=== PATIENT | female | born 1995 | race Caucasian/White ===

== ENCOUNTER 2020-04-19 04:59 | Emergency (ER) | payer OTHER, SELFPAY ==
[2020-04-19 05:05] VITALS: BP 134/85; PULSE 113; RESP 20; TEMP 36.2; O2SAT 100
--- NOTE | 2020-04-19 05:25 | ED.GENADULT ---
HPI - General Adult General Chief complaint: Urogenital-Female Stated complaint: sti exposure Time Seen by Provider: 04/19/20 05:02 Source: RN notes reviewed History of Present Illness HPI narrative: Patient presents to emergency department from home for possible STD exposure. Patient states that her significant other had sexual intercourse with a third democrat approximately 1 week ago. States that they have been sexually active since that time and she has had a white discharge for the past 4 days. Concerns of possible STD secondary to this. The patient denies any fevers or chills abdominal pain or any other symptoms at this time Related Data Allergies Allergy/AdvReac Type Severity Reaction Status Date / Time No Known Allergies Allergy Unverified 01/02/16 07:18 Review of Systems Review of Systems: Narrative: Gen.: Denies fevers or chills ENT: Denies congestion Respiratory: Denies shortness of breath or cough CV: Denies chest pain GI: Denies abdominal pain nausea, emesis see HPI Musculoskeletal: Denies back pain or muscle pain Neuro: Denies headache Skin: Denies rash Except as documented, all other systems reviewed and negative [facility] Past Medical History Medical History (Updated 04/19/20 @ 06:08 by Rom Lockett DO) Patient denies significant medical history Social History Social History (Updated 04/19/20 @ 05:26 by Rom Lockett DO) Smoking status: Current every day smoker Exam Narrative: Exam Narrative: APPEARANCE: No acute distress, nontoxic, resting in bed EYES: EOMI HEENT: Normocephalic, atraumatic, OMM RESPIRATORY: No respiratory distress Clear to auscultation bilaterally with no rhonchi wheezing or rales. CARDIOVASCULAR: Regular rate and rhythm without murmurs rubs or gallops. ABDOMINAL: Soft, nontender, nondistended, no rebound or guarding : Normal external exam, small amount of white discharge in vaginal canal, cervix closed, no cervical motion tenderness MUSCULOSKELETAl: Moves all extremities. NEURO: Awake and alert. Following commands, speech normal, no focal deficits SKIN:: Warm, dry. No rashes lesions or abrasions PSYCHIATRIC: Normal affect/mood, Course Course Emergency Course: Discussed with patient results of workup and diagnosis. Discussed need for follow-up with primary care, proper use of medication, and reasons to return to the emergency department. Patient understands and agrees to current treatment plan Vital Signs Vital signs: Vital Signs Temperature 97.1 F L 04/19/20 05:05 Pulse Rate 113 H 04/19/20 05:05 Respiratory Rate 20 04/19/20 05:05 Blood Pressure 134/85 04/19/20 05:05 Pulse Oximetry 100 04/19/20 05:05 Temperature 97.1 F L 04/19/20 05:05 Pulse Rate 113 H 04/19/20 05:05 Respiratory Rate 20 04/19/20 05:05 Blood Pressure 134/85 04/19/20 05:05 Pulse Oximetry 100 04/19/20 05:05 Medical Decision Making Vital Signs Vital Signs: Vital Signs Temperature 97.1 F L 04/19/20 05:05 Pulse Rate 113 H 04/19/20 05:05 Respiratory Rate 20 04/19/20 05:05 Blood Pressure 134/85 04/19/20 05:05 Pulse Oximetry 100 04/19/20 05:05 Temperature 97.1 F L 04/19/20 05:05 Pulse Rate 113 H 04/19/20 05:05 Respiratory Rate 04/19/20 05:05 Blood Pressure 134/85 04/19/20 05:05 Pulse Oximetry 100 04/19/20 05:05 Lab Data Labs: Lab Results 04/19/20 04/19/20 04/19/20 Range/Units 05:19 05:27 05:27 Urine Color Yellow (Yellow) Urine Appearance Clear (Clear) Urine pH 5.0 (5.0-9.0) Ur Specific Merkel 1.026 (1.001-1.035) Urine Protein 1+ H (Negative) mg/dL Urine Glucose (UA) Negative (Negative) mg/dL Urine Ketones Negative (Negative) mg/dL Ur Blood (Man) Negative (Negative) Urine Nitrate Negative (Negative) Urine Bilirubin Negative (Negative) Urine Urobilinogen 2.0 H (<2.0) mg/dL Leukocyte Esterase Rfl Negative (Negative) ARASH/UL Urine RBC 0-2 (
[2020-04-19 05:31] LABS: Add Urine Microscopic? YES; Appearance Urine Clear (Clear); Bacteria Urine Trace /hpf; Bilirubin Urine Negative (Negative); Blood Urine Negative (Negative); Color Urine Yellow (Yellow); Glucose Urine UA Negative (Negative); Ketones Urine Negative (Negative); Leukocyte Esterase Ur Negative LEU/UL (Negative); Mucus Urine Heavy /lpf; Nitrate Urine Negative (Negative); Protein Urine 1+ mg/dL (Negative); RBC Urine 0-2 /hpf (0-2); Specific Grav Ur 1.026 (1.001-1.035); Squamous Epithelial Cell Urine Few /hpf (Few); WBC Urine 0-3 /hpf
[2020-04-19] MEDS: AZITHROMYCIN 250 MG TABLET 1000 MG PO (06:08)
[2020-04-19] MEDS: cefTRIAXone 250 MG VIAL IM (06:08)
== END 2020-04-19 06:18 | disposition home or self-care (01) ==
PROVIDERS: Emergency Provider Emergency Medicine; PCP Nurse Practitioner Family
DX: Z20.2 Contact with and (suspected) exposure to infections with a predominantly sexual mode of transmission (principal); F17.200 Nicotine dependence, unspecified, uncomplicated
CPT/HCPCS: 81001; 81025; 87070; 87491; 87591; 87808; 96372; 99284; A9270; J0696

== ENCOUNTER 2020-08-19 02:04 | Emergency (ER) | payer OTHER, SELFPAY ==
--- NOTE | ~2020-08-19 | CT_ITS ---
EXAMINATION: CT abdomen pelvis w con DATE: 08/19/2020 03:45 INDICATION: Sharp stabbing right lower quadrant abdominal pain. TECHNIQUE: Computed tomography (CT) of the abdomen and pelvis was performed with 100 mL Omnipaque-350 intravenous contrast. Automated exposure control and iterative reconstruction technique were employe d. The dose-length product was 228.19 mGy-cm. COMPARISON: None FINDINGS: Lung bases are clear. Heart size is normal. No pericardial or pleural effusion. Liver, decompressed g allbladder, spleen, pancreas and bilateral adrenal glands are normal. A few small regions of cortical scarring at both kidneys consistent with likely sequela of prior infection. No bowel obstruction. Th e appendix is not visualized. No pericecal inflammatory change to suggest acute appendicitis. 2 cm ri ght ovarian cyst. Bladder, anteverted uterus and left adnexa are unremarkable. Trace amount of likely physiologic free fluid in the pelvis. No free intraperitoneal gas. There is asymmetric mild joint sp samuel during the left hip relative to the right and small marginal osteophytes about the left femoral h ead consistent mild osteoarthritis which given patient age may be secondary to prior trauma or infect ion. Nonaggressive appearing 2.2 cm lytic lesion with well-defined thin sclerotic margins at the late ral aspect of the left humeral head likely either degenerative subchondral cyst or cystic change rela cooper to femoral acetabular impingement with similar significantly smaller cystic change at the right a nterosuperior femoral head neck junction. IMPRESSION: 1. Nonvisualized appendix with no pericecal inflammatory stranding to suggest acute appendicitis. 2. 2 cm right ovarian cyst. No other evident acute intra-abdominal/pelvic process. Reviewed, dictated and finalized at location A. [facility] TECHNICIAN IMPRESSION: 1. Nonvisualized appendix with no pericecal inflammatory stranding to suggest a cute appendicitis. 2. 2 cm right ovarian cyst. No other evident acute intra-abdominal/pelvic proce ss.
[2020-08-19 02:10] VITALS: BP 114/78; PULSE 90; RESP 20; TEMP 36.2; O2SAT 98
[2020-08-19 02:45] VITALS: BP 121/85; PULSE 88; RESP 19; O2SAT 99
--- NOTE | 2020-08-19 02:57 | ED.ABDPAIN ---
HPI - Abdominal Pain General Chief Complaint: Abdominal Pain Stated Complaint: Abd pain Time Seen by Provider: 08/19/20 02:53 Source: patient Mode of arrival: ambulatory Limitations: no limitations History of Present Illness HPI narrative: A 24-year-old female comes into the emergency department tonight with complaints of abdominal pain. Patient states that it was sharp, stabbing in nature and actually woke her up out of sleep. Patient states that it woke her up around 1:30 in the morning and has been unrelenting since then. She notes that she has never had a pain like this before. Patient denies any radiation of the pain. She notes that she has been having bowel movements. She denies any nausea or vomiting. Related Data Allergies Allergy/AdvReac Type Severity Reaction Status Date / Time No Known Allergies Allergy Unverified 01/02/16 07:18 Review of Systems Review of Systems: Narrative: CONSTITUTIONAL: Denies fever, chills, or sweats. EYES: Denies visual changes, redness, or discharge. ENT: Denies rhinorrhea, congestion, sore throat, or otalgia. CARDIOVASCULAR: Denies chest pain, palpitations, or edema. RESPIRATORY: Denies cough or dyspnea. GASTROINTESTINAL: Denies nausea, vomiting, or diarrhea. Endorses abdominal pain GENITOURINARY: Denies dysuria or hematuria. SKIN: Denies rash or itching. MUSCULOSKELETAL: Denies back pain, joint pain, or myalgia. NEUROLOGIC: Denies headache, numbness, dizziness, or weakness. PSYCHIATRIC: Denies anxiety or depression. PMFSH Past Medical History Medical History Patient denies significant medical history Social History Social History Smoking status: Current every day smoker Exam Narrative: Exam Narrative: GENERAL: Well-appearing, well-nourished, and in no acute distress. HEAD: Normocephalic, atraumatic. EYES: PERRLA and EOMI. ENT: Nares clear, no rhinorrhea or epistaxis. Mucous membranes moist. NECK: Supple. No adenopathy or masses. No carotid bruits or JVD CHEST: Clear to auscultation. No respiratory distress. No wheezes rales or rhonchi HEART: Regular rate and rhythm. No murmur heard. Normal peripheral pulses. ABDOMEN: Soft,nondistended, normal active bowel sounds. Tenderness to palpation of the right lower quadrant, positive McBurney's point tenderness. Positive Rovsing's and rebound. EXTREMITIES: Normal range of motion. No edema. SKIN: Warm, dry, no rash. NEURO: No focal deficits. Alert and oriented x3. PSYCH: Normal mood and affect. Course Reevaluation(s) Reevaluation #1: Patient resting comfortably at this time. Informed patient of the results of her work-up. Patient states she is feeling better, after some education and explanation of the plan she will be discharged home to follow-up with primary care physician. Time: 04:08 Vital Signs Vital signs: Vital Signs Temperature 36.2 C L 08/19/20 02:10 Pulse Rate 90 08/19/20 02:10 Respiratory Rate 20 08/19/20 02:10 Blood Pressure 114/78 08/19/20 02:10 Pulse Oximetry 98 08/19/20 02:10 Temperature 36.2 C L 08/19/20 02:10 Pulse Rate 90 08/19/20 02:10 Respiratory Rate 20 08/19/20 02:10 Blood Pressure 114/78 08/19/20 02:10 Pulse Oximetry 98 08/19/20 02:10 MDM - Abdominal Pain MDM Narrative Medical decision making narrative: In brief this 24-year-old female came into the emergency department with complaints of right lower quadrant abdominal pain. With positive rebound and Rovsing sign it was most suspicious of a possible appendicitis. Reassuringly the patient's white blood cell count was found to be within normal limits. She did have a CT scan performed that did show constipation and ovarian cyst explaining her right lower quadrant pain. Patient was educated on this and explained what to do for this. She be discharged home to follow-up with a primary care physician. Differenti
[2020-08-19 03:01] VITALS: BP 123/80; PULSE 94; RESP 22; O2SAT 99
[2020-08-19 03:18] LABS: Basophils Absolute Auto 0.1 K/mm3 (0.0-0.1); Basophils Percent Auto 0.7 % (0.2-1.2); Eosinophils Absolute Auto 0.2 K/mm3 (0-0.3); Eosinophils Percent Auto 2.7 % (0-4.4); Hematocrit 38.5 % (37.0-47.0); Hemoglobin 12.6 g/dL (12.0-15.0); Immature Granulocyte Absolute 0.03 K/mm3 (0.00-0.031); Immature Granulocyte Percent A 0.3 % (0-0.5); Lymphocytes Absolute Auto 4.18 K/mm3 (0.9-3.2); Lymphocytes Percent Auto 46.5 % (18.3-44.2); Mean Corpuscular HGB Conc 32.7 g/dl (32-36); Mean Corpuscular Hemoglobin 29.6 pg (26-34); Mean Corpuscular Volume 90.6 fl (80-100); Mean Platelet Volume 8.9 fl (7.4-10.4); Monocytes Absolute Auto 0.7 K/mm3 (0.1-0.6); Monocytes Percent Auto 7.3 % (2.6-8.5); Neutrophils Absolute Auto 3.8 K/mm3 (1.3-6.7); Neutrophils Percent Auto 42.5 % (45.5-73.1); Platelet Count Result 382 k/mm3 (150-375); Red Blood Count 4.25 M/mm3 (4.2-5.4); Red Cell Distribution Width 13.2 % (11.5-14.5)
[2020-08-19 03:26] LABS: Add Urine Microscopic? YES; Appearance Urine Cloudy (Clear); Bacteria Urine 4+ /hpf; Bilirubin Urine Negative (Negative); Blood Urine 1+ (Negative); Color Urine Yellow (Yellow); Glucose Urine UA Negative (Negative); Ketones Urine Negative (Negative); Leukocyte Esterase Ur Trace LEU/UL (Negative); Mucus Urine Heavy /lpf; Nitrate Urine Positive (Negative); Protein Urine Negative (Negative); RBC Urine 0-2 /hpf (0-2); Squamous Epithelial Cell Urine Few /hpf (Few); Urobilinogen Urine Negative mg/dL (<2.0)
[2020-08-19 03:31] LABS: Alanine Aminotransferase 13 U/L (4-35); Alkaline Phosphatase 59 U/L (38-126); Anion Gap 6 mmol/L (8-16); Aspartate Amino Transferase 24 U/L (14-36); Bilirubin,Total 0.2 mg/dL (0.2-1.3); Blood Urea Nitrogen 18 mg/dL (7-17); Calcium 9.1 mg/dL (8.4-10.2); Carbon Dioxide 29 mmol/L (22-30); Chloride 106 mmol/L (98-107); Estimated CRCL calculation 83 ml/min; Estimated Glomerular Filt Rate > 60; Glucose 94 mg/dL (65-105); Lipase 36 U/L (23-300); Sodium 141 mmol/L (137-145)
[2020-08-19 03:47] LABS: Beta HCG Quantitative < 2.39 mIU/ML
[2020-08-19] MEDS: LACTATED RINGERS 1,000 ML 999 ML IV CONT (03:53)
[2020-08-19] MEDS: ONDANSETRON INJ 4 MG/2 ML VIAL IV PUSH (03:53)
[2020-08-19] MEDS: KETOROLAC 30 MG/ML VIAL (*BKC) 15 MG IV PUSH (03:53)
[2020-08-19 04:42] VITALS: BP 130/89; PULSE 84; RESP 18; O2SAT 100
== END 2020-08-19 04:45 | disposition home or self-care (01) ==
PROVIDERS: Emergency Provider Emergency Medicine; PCP Physician Assistant
DX: N83.201 Unspecified ovarian cyst, right side (principal); K59.01 Slow transit constipation; F17.200 Nicotine dependence, unspecified, uncomplicated
CPT/HCPCS: 36415; 74177; 80053; 81001; 81025; 83690; 84702; 85025; 87077; 87086; 87088; 87186; 96361; 96374; 96375; 99284; J1885; J2405; J7120; Q9967

== ENCOUNTER 2021-01-09 20:13 | Emergency (ER) | payer OTHER, SELFPAY ==
[2021-01-09 20:16] VITALS: BP 143/104; RESP 16; TEMP 37.1; O2SAT 100
--- NOTE | 2021-01-09 20:38 | ED.EXTPRO ---
HPI - Extremity Problem General Chief complaint: Extremity Problem,Nontraumatic Stated complaint: hx of rheumatoid arthritis, throbbing right hand Time Seen by Provider: 01/09/21 20:28 Source: patient and family Mode of arrival: ambulatory Limitations: no limitations History of Present Illness HPI Narrative: 25-year-old female Patient has a history of rheumatoid arthritis, may be JRA, and is followed by a telegraphic typewriter operator chief at [facility] She reports that she had been on DMARD with methotrexate however that had to be stopped due to what sounds like liver toxicity sometime back She has been having a lot of problems with her right hand and wrist, swelling, pain, stiffness She usually takes 5 mg of prednisone twice a day and she double that for a couple of days but did not take any today She also takes naproxen currently after having previously been prescribed Flexeril as an adjunct Related Data Home Medications Medication Instructions Recorded Confirmed naproxen 01/09/21 01/09/21 prednisone 01/09/21 Allergies Allergy/AdvReac Type Severity Reaction Status Date / Time No Known Allergies Allergy Unverified 01/09/21 20:20 Review of Systems Review of Systems: All systems reviewed & are unremarkable except as noted in HPI and below Constitutional: Constitutional: Reports no additional constitutional complaints, Denies chills, Denies fatigue, Denies fever(s), Denies headache(s) and Denies weakness ENT: Denies headache(s) Cardiovascular: Cardiovascular: Denies dyspnea Genitourinary: Genitourinary: Denies urinary frequency Musculoskeletal: Musculoskeletal: Denies deformity, Reports arthralgias, Reports joint swelling, Reports muscle cramps and Denies numbness Integumentary/Breasts: Skin/Breast: Denies rash and Denies wounds Neurologic: Denies headache(s), Denies focal weakness and Denies numbness Psychiatric: Psychiatric: Reports no additional psychiatric complaints Endocrine: Endocrine: Reports no additional endocrine complaints Hematologic/Lymphatic: Hematologic/Lymphatic: Reports no additional hematologic/lymphatic complaints Allergic/Immunologic: Allergic/Immunologic: Reports no additional allergic/immunologic complaints PMFSH Past Medical History Medical History Patient denies significant medical history Social History Social History Smoking status: Current every day smoker Exam Const: General: cooperative, no acute distress and alert Orientation/consciousness: patient oriented x3 (alert) HENMT: Head: normal to inspection, normocephalic and atraumatic Ears: external ears normal General nose exam: no epistaxis Eyes: Conjunctivae: conjunctivae normal EOM: EOMs intact bilaterally Neck: Neck: normal visual inspection, supple and no JVD Resp: Effort & Inspection: normal respiratory effort and not labored Auscultation: other (BS =) Skin: General skin exam: normal color and no rashes or lesions noted Rashes: no rashes Neuro: General: patient oriented x3 (alert) and moves all extremities Speech: normal speech Extrem: Other: She has mild swelling and tenderness of the joints in the right wrist and effectively all of the joints in her hand possibly the MCP a little bit more than the IP joints Psych: Affect: normal affect Course Course Emergency Course: Discussed with patient, will prescribe a rapidly tapering prednisone burst and request that she contact her telegraphic typewriter operator chief to move her appointment up and see if there is any other interim treatment to date suggest Vital Signs Vital signs: Vital Signs Temperature 37.1 C 01/09/21 20:16 Respiratory Rate 16 01/09/21 20:16 Blood Pressure 143/104 H 01/09/21 20:16 Pulse Oximetry 100 01/09/21 20:16 Temperature 37.1 C 01/09/21 20:54 Pulse Rate 63 01/09/21 20:54 Respiratory Rate 16 01/09/21 20:54 Blood Pre
[2021-01-09 20:54] VITALS: BP 143/104; PULSE 63; RESP 16; TEMP 37.1; O2SAT 100
== END 2021-01-09 20:56 | disposition home or self-care (01) ==
PROVIDERS: Emergency Provider Emergency Medicine; PCP Physician Assistant
DX: M06.9 Rheumatoid arthritis, unspecified (principal); F17.200 Nicotine dependence, unspecified, uncomplicated
CPT/HCPCS: 99283

== ENCOUNTER 2021-02-03 11:26 | Emergency (ER) | payer OTHER, SELFPAY ==
[2021-02-03 11:51] VITALS: BP 125/79; PULSE 89; RESP 18; TEMP 36.7; O2SAT 100
--- NOTE | 2021-02-03 12:01 | ED.EAR ---
HPI - Ear Problem General Chief complaint: Ear Stated complaint: left ear irritation Time Seen by Provider: 02/03/21 11:48 Source: RN notes reviewed History of Present Illness HPI Narrative: Patient presents emergency department from home for left ear pain. Patient states that starting 4 days ago she noticed a small bump in her left ear just inside the ear canal over the superior aspect that is tender to palpation she denies any drainage or bleeding from the area as she denies any other ear pain states that it hurts to touch the area denies any known trauma or injury Related Data Home Medications Medication Instructions Recorded Confirmed naproxen 01/09/21 01/09/21 prednisone 01/09/21 Allergies Allergy/AdvReac Type Severity Reaction Status Date / Time No Known Allergies Allergy Unverified 02/03/21 11:55 Review of Systems Review of Systems: Gen.: Denies fevers or chills HEENT: See HPI Neuro: Denies headache Skin: Denies rash Endo: Denies DM PMFSH Past Medical History Medical History Patient denies significant medical history Social History Social History Smoking status: Current every day smoker Exam Narrative: APPEARANCE: No acute distress, nontoxic, resting in bed Eyes: EOMI HEENT: Normocephalic, atraumatic, right ear normal in appearance, the left tympanic membrane is normal in appearance the left proximal superior canal has a small raised lesion with no surrounding erythema or signs of infection no drainage from the lesion lesion is firmly attached to the skin with attempt of removal with forceps with tenderness in the area the remainder of the ear is normal in appearance RESPIRATORY: No respiratory distress MUSCULOSKELETAl: Moves all extremities NEURO: Awake and alert. Following commands, speech normal, no focal deficits SKIN:: Warm, dry. Normal Color no rash or lesions Course Course Emergency Course: Discussed with patient results of workup and diagnosis. Discussed need for follow-up with primary care, proper use of medication, and reasons to return to the emergency department. Patient understands and agrees to current treatment plan discussed with patient need for follow-up with ENT Vital Signs Vital signs: Vital Signs Temperature 98.1 F 02/03/21 11:51 Pulse Rate 89 02/03/21 11:51 Respiratory Rate 18 02/03/21 11:51 Blood Pressure 125/79 02/03/21 11:51 Pulse Oximetry 100 02/03/21 11:51 Temperature 98.1 F 02/03/21 11:51 Pulse Rate 89 02/03/21 11:51 Respiratory Rate 18 02/03/21 11:51 Blood Pressure 125/79 02/03/21 11:51 Pulse Oximetry 100 02/03/21 11:51 Medical Decision Making MDM Narrative Medical decision making narrative: Patient was small raised lesion in superior proximal ear canal question skin tag versus wart versus other we will likely need incision removal by ENT no surrounding signs of infection will discharge follow-up as an outpatient Vital Signs Vital Signs: Vital Signs Temperature 98.1 F 02/03/21 11:51 Pulse Rate 89 02/03/21 11:51 Respiratory Rate 18 02/03/21 11:51 Blood Pressure 125/79 02/03/21 11:51 Pulse Oximetry 100 02/03/21 11:51 Temperature 98.1 F 02/03/21 11:51 Pulse Rate 89 02/03/21 11:51 Respiratory Rate 18 02/03/21 11:51 Blood Pressure 125/79 02/03/21 11:51 Pulse Oximetry 100 02/03/21 11:51 Discharge Plan Discharge Clinical Impression: Skin lesion of left ear Patient Disposition: Home, Self-Care Condition: Stable Instructions: Antibiotic Form Additional Instructions: Return for increasing pain, change in hearing or any other symptoms of concern Prescriptions: No Action prednisone 5 mg tablet RF: 0 naproxen 500 mg tablet RF: 0 prednisone 20 mg tablet See Rx Instructions .ROUTE .COMPLEX Qty: 12 RF: 0 Follow-up/Referrals: Jeffry Johnson
[2021-02-03] MEDS: ACETAMINOPHEN 500 MG TABLET 1000 MG PO (12:15)
== END 2021-02-03 12:21 | disposition home or self-care (01) ==
PROVIDERS: Emergency Provider Emergency Medicine; PCP Physician Assistant
DX: L98.9 Disorder of the skin and subcutaneous tissue, unspecified (principal); F17.200 Nicotine dependence, unspecified, uncomplicated
CPT/HCPCS: 99282; A9270

== ENCOUNTER 2021-03-22 23:13 | Emergency (ER) | payer OTHER, SELFPAY ==
[2021-03-22 23:19] VITALS: BP 139/85; PULSE 96; RESP 21; TEMP 36.3; O2SAT 99
== END 2021-03-22 23:19 | disposition left against medical advice (07) ==
PROVIDERS: PCP Physician Assistant
DX: Z53.21 Procedure and treatment not carried out due to patient leaving prior to being seen by health care provider (principal)
CPT/HCPCS: 99199

== ENCOUNTER 2021-04-21 09:01 | Emergency (ER) | payer OTHER, SELFPAY ==
[2021-04-21 09:04] VITALS: BP 130/82; PULSE 100; RESP 16; TEMP 36.2; O2SAT 100
--- NOTE | 2021-04-21 09:42 | ED.GENADULT ---
HPI - General Adult General Chief complaint: Eye Problems Stated complaint: puffy right eye Time Seen by Provider: 04/21/21 09:12 Source: patient Mode of arrival: ambulatory Limitations: no limitations History of Present Illness HPI narrative: Patient is here for left eyelid swelling. Was concern for spider bite. Has been treating at home for the past 2 days with NSAIDs and has taken 1 dose of allergy medication all without relief. She denies any visual changes, any eyeball pain, any feeling of sand in the eye. She states she can feel the bump on the inside of her eyelid. She has been followed by an roof technician that she has rheumatoid arthritis and has had been on medications for that. Onset (ago): day(s) Radiation: non-radiation Associated symptoms: denies other symptoms Related Data Home Medications Medication Instructions Recorded Confirmed naproxen 01/09/21 01/09/21 prednisone 01/09/21 Allergies Allergy/AdvReac Type Severity Reaction Status Date / Time No Known Allergies Allergy Unverified 04/21/21 09:08 Review of Systems Review of Systems: All systems reviewed & are unremarkable except as noted in HPI and below PMFSH Past Medical History Medical History (Updated 04/21/21 @ 10:00 by Atiya Castaneda PA-C) Patient denies significant medical history Social History Social History Smoking status: Current every day smoker Exam Const: General: no acute distress and alert Orientation/consciousness: patient oriented x3 Eyes: Eyelids: eyelid abnormality left upper eyelid (mild erythema) swelling Conjunctivae: conjunctivae normal Pupils: Equal, round and reactive pupils present EOM: EOMs intact bilaterally Direct Ophthalmoscopy: no photophobia Resp: Effort & Inspection: normal respiratory effort Cardio: Rate: regular rate Rhythm: regular rhythm Psych: Mental Status: mental status grossly normal Course Course Emergency Course: Visual acuity normal OU. Patient given instructions for warm compresses and time. Given recommendations for ophthalmology should she need follow-up. Vital Signs Vital signs: Vital Signs Temperature 36.2 C L 04/21/21 09:04 Pulse Rate 100 04/21/21 09:04 Respiratory Rate 16 04/21/21 09:04 Blood Pressure 130/82 04/21/21 09:04 Pulse Oximetry 100 04/21/21 09:04 Temperature 36.2 C L 10/27/21 09:04 Pulse Rate 100 04/21/21 09:04 Respiratory Rate 16 04/21/21 09:04 Blood Pressure 130/82 04/21/21 09:04 Pulse Oximetry 100 04/21/21 09:04 Medical Decision Making Vital Signs Vital Signs: Vital Signs Temperature 36.2 C L 04/21/21 09:04 Pulse Rate 100 04/21/21 09:04 Respiratory Rate 16 04/21/21 09:04 Blood Pressure 130/82 04/21/21 09:04 Pulse Oximetry 100 04/21/21 09:04 Temperature 36.2 C L 04/21/21 09:04 Pulse Rate 100 04/21/21 09:04 Respiratory Rate 16 04/21/21 09:04 Blood Pressure 130/82 04/21/21 09:04 Pulse Oximetry 100 04/21/21 09:04 Discharge Plan Discharge Clinical Impression: Chalazion left upper eyelid Patient Disposition: Home, Self-Care Condition: Stable Instructions: Antibiotic Qing Daniels (ED) Additional Instructions: Do warm compress 15 minutes at a time 4 times a day to your left eye. If swelling persists after several days of treatment please make an appointment with an roof technician, such as [facility] or [facility]. Prescriptions: No Action prednisone 5 mg tablet RF: 0 naproxen 500 mg tablet RF: 0 prednisone 20 mg tablet See Rx Instructions .ROUTE .COMPLEX Qty: 12 RF: 0 Follow-up/Referrals: Rip,JOSEP Zavala [Primary Care Provider] -
--- NOTE | 2021-04-21 10:25 | PC.NURSE ---
Visual acuity 20/25 bilateral eyes.
== END 2021-04-21 10:56 | disposition home or self-care (01) ==
PROVIDERS: Emergency Provider Emergency Medicine; PCP Physician Assistant
DX: H00.14 Chalazion left upper eyelid (principal)
CPT/HCPCS: 99281

== ENCOUNTER 2021-07-26 19:33 | Observation (INO) | payer OTHER, SELFPAY ==
[2021-07-26 19:39] VITALS: BP 146/100; PULSE 104; RESP 20; TEMP 36.9; O2SAT 98
--- NOTE | 2021-07-26 19:45 | ECG_ITS ---
Measurements Intervals [place] Rate: 101 P: 83 NM: 137 QRS: 86 QRSD: 92 T: 52 QT: 345 QTc: 449 Interpretive Statements SINUS TACHYCARDIA POSSIBLE RIGHT ATRIAL ENLARGEMENT POSSIBLE LEFT ATRIAL ENLARGEMENT BORDERLINE ST-T WAVE ABNORMALITY- ANTEROLAT/INF LEADS BASELINE ARTIFACT- I BORDERLINE ECG Electronically Signed On 07-26-2021 20:42:52 DIALYSIS REGISTERED NURSE by Dougie Huddleston D.O.
[2021-07-26 19:56] VITALS: BP 132/105; PULSE 86; RESP 14; TEMP 36.6; O2SAT 99
--- NOTE | 2021-07-26 20:13 | PC.NURSE ---
Spoke with Sandy pharmacist from poison control. No lethal side effects expected. Peak life begins 1-4 hours after ingestion, half life begins 12-17 hours after ingestion. Watch for nystagmus, blurred vision, hallucinations which could indicate a bigger ingestion and cause metabolic acidosis. Poison control to send print out with guidelines on over ingestion of naproxen.
--- NOTE | 2021-07-26 20:19 | PC.NURSE ---
Pt grandmother Pat ([phone]) called per pt request.
--- NOTE | 2021-07-26 20:33 | PC.NURSE ---
Per ERP Darrius request after evaluation, pt placed in green scrubs, 1:1 sitter at bedside.
[2021-07-26 20:50] LABS: Basophils Absolute Auto 0.1 K/mm3 (0.0-0.1); Basophils Percent Auto 0.4 % (0.2-1.2); Eosinophils Absolute Auto 0.1 K/mm3 (0-0.3); Eosinophils Percent Auto 0.9 % (0-4.4); Hematocrit 42.8 % (37.0-47.0); Hemoglobin 14.4 g/dL (12.0-15.0); Immature Granulocyte Absolute 0.05 K/mm3 (0.00-0.031); Immature Granulocyte Percent A 0.4 % (0-0.5); Lymphocytes Absolute Auto 2.27 K/mm3 (0.9-3.2); Lymphocytes Percent Auto 16.2 % (18.3-44.2); Mean Corpuscular HGB Conc 33.6 g/dl (32-36); Mean Corpuscular Hemoglobin 31.2 pg (26-34); Mean Corpuscular Volume 92.6 fl (80-100); Mean Platelet Volume 9.1 fl (7.4-10.4); Monocytes Absolute Auto 0.9 K/mm3 (0.1-0.6); Monocytes Percent Auto 6.4 % (2.6-8.5); Neutrophils Absolute Auto 10.6 K/mm3 (1.3-6.7); Neutrophils Percent Auto 75.7 % (45.5-73.1); Platelet Count Result 351 k/mm3 (150-375); Red Blood Count 4.62 M/mm3 (4.2-5.4); Red Cell Distribution Width 13.4 % (11.5-14.5)
--- NOTE | 2021-07-26 20:53 | ED.OVERDOSE ---
HPI - Overdose General Chief Complaint: Arrhythmia/Palpitations Stated Complaint: took too many naproxsen, heart racing, nausea Time Seen by Provider: 07/26/21 20:13 Source: patient Mode of arrival: ambulatory Limitations: no limitations History of Present Illness HPI Narrative: 25-year-old female Patient states that she intentionally overdosed on prescription strength naproxen about 4 hours prior to arrival here She has represented the quantity as something between 8-9 or a handful She says now that she was only seeking attention She does complain of dizziness and an upset stomach Related Data Home Medications Medication Instructions Recorded Confirmed naproxen 01/09/21 01/09/21 prednisone 01/09/21 Allergies Allergy/AdvReac Type Severity Reaction Status Date / Time No Known Allergies Allergy Unverified 07/26/21 20:42 Review of Systems Review of Systems: All systems reviewed & are unremarkable except as noted in HPI and below Constitutional: Constitutional: Reports no additional constitutional complaints, Denies chills, Denies fever(s) and Denies headache(s) Eyes: Eyes: Reports no additional eye complaints and Denies change in vision ENT: Denies headache(s) and Denies sore throat Cardiovascular: Cardiovascular: Denies chest pain and Denies dyspnea Respiratory: Respiratory: Denies cough and Denies dyspnea Gastrointestinal: Gastrointestinal: Reports abdominal pain, Denies diarrhea, Reports nausea and Denies vomiting Genitourinary: Genitourinary: Denies urinary frequency and Denies dysuria Musculoskeletal: Musculoskeletal: Denies deformity, Denies arthralgias, Denies joint swelling and Denies numbness Integumentary/Breasts: Skin/Breast: Denies rash and Denies wounds Neurologic: Denies headache(s), Denies focal weakness and Denies numbness Psychiatric: Psychiatric: Reports no additional psychiatric complaints and Reports depression Endocrine: Endocrine: Reports no additional endocrine complaints Hematologic/Lymphatic: Hematologic/Lymphatic: Reports no additional hematologic/lymphatic complaints Allergic/Immunologic: Allergic/Immunologic: Reports no additional allergic/immunologic complaints PMFSH Past Medical History Medical History Patient denies significant medical history Social History Social History Smoking status: Current every day smoker Substance use type: marijuana and methamphetamine Exam Const: General: cooperative, no acute distress and alert Orientation/consciousness: patient oriented x3 (alert) HENMT: Head: normal to inspection, normocephalic and atraumatic Ears: external ears normal General nose exam: no epistaxis Eyes: Conjunctivae: conjunctivae normal EOM: EOMs intact bilaterally Neck: Neck: normal visual inspection, supple and no JVD Resp: Effort & Inspection: normal respiratory effort and not labored Auscultation: no rales, no rhonchi, no wheezes and other (BS =) Cardio: Rate: regular rate Rhythm: regular rhythm Heart sounds: no murmurs GI: GI Palp: Yes Soft to palpation and No Tenderness to palpation present (GI) Skin: General skin exam: normal color and no rashes or lesions noted Neuro: General: patient oriented x3 (alert) and moves all extremities Speech: normal speech Extrem: General: normal to inspection and no pedal edema Psych: Affect: normal affect Course Course Emergency Course: Patient with a symptomatic intentional overdose of a large amount of naproxen, work-up negative for other coingestions, will be observed and monitored overnight and can be evaluated by behavioral in the morning Hospitalist for admission and also with glass pulverizer equipment operator who does not think that she medically needs to be placed in the ICU Vital Signs Vital signs: Vital Signs Temperature 36.9 C 07/26/21 19:39 Pulse Rate 104 H 07/26/21 19:39 Respiratory
[2021-07-26 20:55] LABS: Add Urine Microscopic? YES; Appearance Urine Cloudy (Clear); Bacteria Urine 3+ /hpf; Bilirubin Urine Negative (Negative); Blood Urine 2+ (Negative); Calcium Oxalate Crystals Urine Present /hpf; Color Urine Yellow (Yellow); Glucose Urine UA Negative (Negative); Ketones Urine Negative (Negative); Leukocyte Esterase Ur 3+ LEU/UL (Negative); Mucus Urine Heavy /lpf; Nitrate Urine Positive (Negative); Protein Urine 1+ mg/dL (Negative); RBC Urine >75 /hpf (0-2); Specific Grav Ur 1.028 (1.001-1.035); Squamous Epithelial Cell Urine Many /hpf (Few); Urobilinogen Urine Negative mg/dL (<2.0)
[2021-07-26 21:12] LABS: Acetaminophen < 10 ug/mL (10-30); Salicylate < 1.0 mg/dL (2-20)
[2021-07-26 21:14] LABS: Ethanol < 10 mg/dL (<10)
[2021-07-26 21:16] LABS: Alanine Aminotransferase 15 U/L (4-35); Albumin Level 4.9 g/dL (3.5-5.1); Alkaline Phosphatase 97 U/L (38-126); Anion Gap 12 mmol/L (8-16); Aspartate Amino Transferase 29 U/L (14-36); Bilirubin,Total 1.2 mg/dL (0.2-1.3); Blood Urea Nitrogen 21 mg/dL (7-17); Calcium 10.1 mg/dL (8.4-10.2); Carbon Dioxide 24 mmol/L (22-30); Chloride 104 mmol/L (98-107); Estimated CRCL calculation 73 ml/min; Estimated Glomerular Filt Rate > 60; Glucose 104 mg/dL (65-110); Potassium 3.5 mmol/L (3.4-5.0); Sodium 140 mmol/L (137-145)
--- NOTE | 2021-07-26 21:26 | PC.NURSE ---
Permission given by pt to speak with about pt condition. Updated Dean at [phone].
[2021-07-26 22:28] LABS: Free T4 Free Thyroxine Reflex 1.58 ng/dL (0.78-2.19)
[2021-07-26 22:38] VITALS: BP 140/103; PULSE 107; RESP 16; O2SAT 100
--- NOTE | 2021-07-26 22:41 | PC.NURSE ---
Sandy from Poison Control called for update on pt. Reports that poison control will close case at this time.
[2021-07-26 23:35] LABS: Total Triiodothyronine (T3) 1.82 NG/ML (0.97-1.69)
[2021-07-26 23:38] LABS: Fractional Inspired Oxygen 21 %; HCO3 VBG 22.3 mEq/l (24.0-30.0); pH VBG 7.375 (7.300-7.400)
[2021-07-26 23:39] LABS: Device ROOM AIR
[2021-07-26 23:51] VITALS: BP 136/84; PULSE 90; RESP 20; O2SAT 100
[2021-07-26 23:53] LABS: SARS-CoV-2 RNA PCR Negative
[2021-07-27] VITALS (29 sets, daily range): BP systolic 112–131; BP diastolic 72–106; PULSE 74–111; RESP 11–30; O2SAT 94–100
[2021-07-27] MEDS: PANTOPRAZOLE SODIUM IV 40 MG VIAL IV PUSH ×2 (00:16→09:29)
[2021-07-27] MEDS: LACTATED RINGERS 1,000 ML 999 ML IV CONT (00:16)
[2021-07-27] MEDS: LACTATED RINGERS 1,000 ML 125 ML IV CONT ×2 (01:23→11:19)
[2021-07-27 02:02] LABS: Barbiturate Screen Urine Negative (Negative); Benzodiazepines Screen Urine Negative (Negative)
[2021-07-27 02:04] LABS: Cannabinoid Screen Urine Positive (Negative); Cocaine Screen Urine Negative (Negative); Methadone Screen Urine Negative (Negative); Opiate Screen Urine Negative (Negative); Phencyclidine Screen Urine Negative (Negative)
[2021-07-27 02:32] LABS: Amphetamine Screen Urine Positive (Negative)
--- NOTE | 2021-07-27 03:54 | PC.NURSE ---
Pt spouse called per pt request.
--- NOTE | 2021-07-27 05:59 | PC.NURSE ---
Pt yelling, stating I'm medically clearing myself I want to go home! and I will take out my own IV I don't care, call [place] police if you have to. ED security called to hallway due to aggression towards staff and risk of elopement.
--- NOTE | 2021-07-27 06:03 | PC.NURSE ---
Pt refusing to be monitored for VS at this time.
[2021-07-27] MEDS: HALOPERIDOL LACTATE 5 MG/ML VIAL 10 MG IM (06:21)
--- NOTE | 2021-07-27 06:21 | PC.NURSE ---
Pt thrashing, yelling, aggressive towards staff. Dr. Jaz mace, TORB 10 mg haloperidol.
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
--- NOTE | 2021-07-27 07:16 | PC.NURSE ---
Breakfast safety tray ordered at this time.
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
--- NOTE | 2021-07-27 11:17 | PC.NURSE ---
SPOKE WITH CATHRYN AT [phone] TO GIVE UPDATE.
--- NOTE | 2021-07-27 13:44 | PM.DS ---
DS: Admitting Diagnosis Discharge Date 07/27/21 Admitting Diagnosis Intentional naproxen overdose. DS: Discharge Diagnosis Discharge Diagnosis (1) Intentional naproxen overdose: Qualifiers: Encounter type: initial encounter Qualified Code(s): T39.312A - Poisoning by propionic acid derivatives, intentional self-harm, initial encounter Code(s): T39.312A - Poisoning by propionic acid derivatives, intentional self-harm, initial encounter Status: Acute (2) Psychiatric illness: Code(s): F99 - Mental disorder, not otherwise specified Status: Acute (3) Drug abuse: Code(s): F19.10 - Other psychoactive substance abuse, uncomplicated Status: Acute (4) Tobacco abuse: Code(s): Z72.0 - Tobacco use Status: Acute (5) Rheumatoid arthritis: Code(s): M06.9 - Rheumatoid arthritis, unspecified Status: Acute (6) Schizophrenia: Code(s): F20.9 - Schizophrenia, unspecified Status: Inactive DS: Summary Hospital Course Reason for hospitalization: 25yo female with schizophrenia, PTSD and drug/Tobacco abuse here for Naproxen OD. Please see H&P for details Hospital Course: Patient presented to the ER via private vehicle after having palpitations following taking a handful of naproxen. The patient reports that she took between 8-11 tablets of prescription strength naproxen 4 hours prior to coming to the ER. She stated that she came into the ER when she fell it was hard to catch her breath. She denied any chest pain. She denied suicidal or homicidal ideation. The patient became verbally aggressive with staff and was threatening to take out her own IV. Security was called into the hallway due to the patient's aggressive behavior at risk of elopement. She was yelling and thrashing nursing staff called me and Haldol 10 mg IM x1 given. She does smoke methamphetamines and marijuana both of which were detected in her UDS. She follows with a psychiatrist at [place]. She reports that she is vaccinated against COVID. However there is no record of immunization under her immunization record. Patient has been placed on Protonix for GI prophylaxis. She was monitored on telemetry with mine safety engineer at bedside. Patient more appropriate. UA noted but many squamous cells and no urinary symptoms. She appears to regret her decision. She was on IV fluids. She was evaluated by crisis counselor. She remained calm. Crisis evaluated the patient and she signed a safety contract. No abdominal pain. She was educated about the benefits of abstaining from drug and tobacco use. She overall did well and was able to be discharged home on 07/27/21. Status at Discharge Cognitive/behavioral status at discharge: Stable Time Spent with Patient Time attestation: Total time spent providing and/or coordinating discharge services: 37 minutes Time spent: Greater than 30 minutes Exam Narrative: AF 97.9 114/78 97 18 100% ra Gen - NARD Chest - CTA bilaterally, nml RR CV - RRR S1/S2 Abd - Soft, NT/ND, Positive BS Ext - No pedal edema Neuro - Alert and oriented. Nonfocal exam. Psych - Nml mood and affect. Pleasant and cooperative. No SI/HI. Skin - Warm and dry DS: Data Data Completed and Pending Labs on day of discharge: Labs from last 24 hours 07/26/21 07/26/21 07/26/21 23:35 23:09 20:39 WBC RBC Hgb Hct MCV MCH MCHC RDW Plt Count MPV Immature Gran % (Auto) Neut % (Auto) Lymph % (Auto) [place] % (Auto) Eos % (Auto) Baso % (Auto) Lymph # (Auto) [place] # (Auto) Eos # (Auto) Baso # (Auto) Abs Immat Gran (auto) Absolute Neuts (auto) Absolute Nucleated RBC Nucleated RBC % VBG pH 7.375 VBG pCO2 39.0 L VBG pO2 57.0 H VBG HCO3 22.3 L O2 Delivery Device Room air O2 Liters/Min Not Reportable FiO2 21 Sodium Potassium Chloride Carbon Dioxide Anion Gap BUN
--- NOTE | 2021-07-27 13:53 | PC.NURSE ---
Pt seen by and cleared by Crisis with safety contract. Sitter discontinued.
--- NOTE | 2021-08-03 08:53 | PC.NURSE ---
Urine Cx is susceptible to Levofloxacin, which is what pt dc on. Dr. Fields aware.
== END 2021-07-27 14:59 | disposition home or self-care (01) ==
LOC: ANHED 23:26 → ANHIMU 07-27 13:53
PROVIDERS: Admitting Provider Internal Medicine; Emergency Provider Emergency Medicine; PCP Physician Assistant; Visit Provider Internal Medicine
DX: T39.312A Poisoning by propionic acid derivatives, intentional self-harm, initial encounter (principal); F20.9 Schizophrenia, unspecified; F17.290 Nicotine dependence, other tobacco product, uncomplicated; F43.10 Post-traumatic stress disorder, unspecified; F41.8 Other specified anxiety disorders; R00.2 Palpitations; M06.9 Rheumatoid arthritis, unspecified; F12.90 Cannabis use, unspecified, uncomplicated; F15.90 Other stimulant use, unspecified, uncomplicated; Z20.822 Contact with and (suspected) exposure to COVID-19
CPT/HCPCS: 36415; 80048; 80076; 80307; 81001; 81025; 82803; 84439; 84443; 84480; 85025; 87077; 87086; 87088; 87186; 93005; 99285; C9113; C9803; G0378; J1630; J7120; U0003; U0005

== ENCOUNTER 2021-07-28 15:14 | Emergency (ER) | payer OTHER, SELFPAY ==
[2021-07-28] VITALS (16 sets, daily range): BP systolic 127–147; BP diastolic 91–100; PULSE 66–106; RESP 15–29; TEMP 36.4–36.8; O2SAT 97–100
[2021-07-28] MEDS: diphenhydrAMINE HCl INJ 50 MG/ML VIAL IV PUSH (15:42)
[2021-07-28 15:50] LABS: Basophils Percent Auto 0.5 % (0.2-1.2); Eosinophils Absolute Auto 0.1 K/mm3 (0-0.3); Eosinophils Percent Auto 0.9 % (0-4.4); Hematocrit 36.2 % (37.0-47.0); Hemoglobin 12.3 g/dL (12.0-15.0); Immature Granulocyte Absolute 0.02 K/mm3 (0.00-0.031); Immature Granulocyte Percent A 0.3 % (0-0.5); Lymphocytes Absolute Auto 1.92 K/mm3 (0.9-3.2); Lymphocytes Percent Auto 25.5 % (18.3-44.2); Mean Corpuscular Hemoglobin 31.1 pg (26-34); Mean Corpuscular Volume 91.6 fl (80-100); Monocytes Absolute Auto 0.5 K/mm3 (0.1-0.6); Neutrophils Percent Auto 65.8 % (45.5-73.1); Platelet Count Result 303 k/mm3 (150-375); Red Blood Count 3.95 M/mm3 (4.2-5.4); Red Cell Distribution Width 13.3 % (11.5-14.5); White Blood Count 7.5 K/mm3 (4.5-10.0)
[2021-07-28 16:00] LABS: Alanine Aminotransferase 20 U/L (4-35); Albumin Level 4.1 g/dL (3.5-5.1); Alkaline Phosphatase 64 U/L (38-126); Anion Gap 5 mmol/L (8-16); Aspartate Amino Transferase 49 U/L (14-36); Bilirubin,Total 0.2 mg/dL (0.2-1.3); Blood Urea Nitrogen 18 mg/dL (7-17); Calcium 9.1 mg/dL (8.4-10.2); Carbon Dioxide 23 mmol/L (22-30); Chloride 108 mmol/L (98-107); Estimated Glomerular Filt Rate > 60; Glucose 112 mg/dL (65-110); Sodium 136 mmol/L (137-145)
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
== END 2021-07-28 17:25 | disposition home or self-care (01) ==
PROVIDERS: Physician Assistant; Emergency Provider Emergency Medicine; PCP Physician Assistant
DX: N30.00 Acute cystitis without hematuria (principal); G25.9 Extrapyramidal and movement disorder, unspecified; F41.9 Anxiety disorder, unspecified; F43.10 Post-traumatic stress disorder, unspecified; X58.XXXA Exposure to other specified factors, initial encounter
CPT/HCPCS: 36415; 80053; 85025; 96374; 99284; J1200

== ENCOUNTER 2021-09-06 16:21 | Observation (INO) | payer OTHER, SELFPAY ==
[2021-09-06] VITALS (25 sets, daily range): BP systolic 88–133; BP diastolic 47–79; PULSE 112–135; RESP 16–21; TEMP 36.4–36.8; O2SAT 97–100; BMI 21.2
--- NOTE | 2021-09-06 16:36 | ECG_ITS ---
Measurements Intervals [place] Rate: 131 P: 75 NH: 120 QRS: 77 QRSD: 90 T: 55 QT: 334 QTc: 494 Interpretive Statements SINUS TACHYCARDIA POSSIBLE RIGHT VENTRICULAR CONDUCTION DELAY [RSR (QR) IN V1/V2] MODERATE ST DEPRESSION [0.05+ mV ST DEPRESSION] COMPARED TO ECG 07/26/2021 19:50:18 ST changes are more pronounced. Electronically Signed On 09-07-2021 11:51:34 CDT by Jaki Dobson M.D.
--- NOTE | 2021-09-06 16:37 | PC.NURSE ---
Per Zandra at Poison Control, depending on how much this patient took she could be subtoxic or toxic. Pt reporting she took 3 tablets, EMS states family reported she took 10. PC stating that her max tolerated dose would be 3x her daily dose which would be 600mg. PC educated to look for hypotension, tachycardia, QT prolongation, drowsiness, seizures, N/V, abnormal movements. PC also stated that the medication can have an anticholinergic affect with could cause delayed absorption of medication. PC suggested to monitor potassium and magnesium levels and treat with benzos as needed. PC reports that because pt is already symptomatic, to proceed with supportive care.
[2021-09-06 16:50] LABS: Basophils Percent Auto 0.2 % (0.2-1.2); Eosinophils Absolute Auto 0.1 K/mm3 (0-0.3); Eosinophils Percent Auto 0.6 % (0-4.4); Hematocrit 36.2 % (37.0-47.0); Hemoglobin 12.1 g/dL (12.0-15.0); Immature Granulocyte Absolute 0.03 K/mm3 (0.00-0.031); Immature Granulocyte Percent A 0.3 % (0-0.5); Lymphocytes Absolute Auto 1.56 K/mm3 (0.9-3.2); Lymphocytes Percent Auto 17.5 % (18.3-44.2); Mean Corpuscular HGB Conc 33.4 g/dl (32-36); Mean Corpuscular Volume 92.8 fl (80-100); Mean Platelet Volume 9.1 fl (7.4-10.4); Monocytes Absolute Auto 0.5 K/mm3 (0.1-0.6); Monocytes Percent Auto 5.7 % (2.6-8.5); Neutrophils Absolute Auto 6.7 K/mm3 (1.3-6.7); Neutrophils Percent Auto 75.7 % (45.5-73.1); Platelet Count Result 237 k/mm3 (150-375); Red Cell Distribution Width 12.8 % (11.5-14.5); White Blood Count 8.9 K/mm3 (4.5-10.0)
[2021-09-06 17:01] LABS: Add Urine Microscopic? YES; Appearance Urine Cloudy (Clear); Bacteria Urine Trace /hpf; Bilirubin Urine Negative (Negative); Blood Urine Negative (Negative); Color Urine Yellow (Yellow); Glucose Urine UA Negative (Negative); Ketones Urine Negative (Negative); Leukocyte Esterase Ur Negative LEU/UL (Negative); Mucus Urine Heavy /lpf; Nitrate Urine Negative (Negative); Protein Urine 1+ mg/dL (Negative); Squamous Epithelial Cell Urine Many /hpf (Few); Urobilinogen Urine Negative mg/dL (<2.0)
[2021-09-06] MEDS: SODIUM CHLORIDE 0.9% IV 1,000 ML 999 ML IV CONT ×2 (17:04→18:34)
[2021-09-06 17:41] LABS: Alanine Aminotransferase 12 U/L (4-35); Albumin Level 3.9 g/dL (3.5-5.1); Alkaline Phosphatase 56 U/L (38-126); Anion Gap 9 mmol/L (8-16); Aspartate Amino Transferase 28 U/L (14-36); Bilirubin,Total 0.5 mg/dL (0.2-1.3); Blood Urea Nitrogen 19 mg/dL (7-17); Calcium 8.5 mg/dL (8.4-10.2); Carbon Dioxide 21 mmol/L (22-30); Chloride 107 mmol/L (98-107); Estimated CRCL calculation 86 ml/min; Estimated Glomerular Filt Rate > 60; Glucose 149 mg/dL (65-110); Potassium 3.1 mmol/L (3.4-5.0); Sodium 137 mmol/L (137-145)
[2021-09-06 17:47] LABS: Acetaminophen < 10 ug/mL (10-30); Ethanol < 10 mg/dL (<10); Salicylate < 1.0 mg/dL (2-20)
[2021-09-06 17:51] LABS: Magnesium 1.8 mg/dL (1.6-2.3)
[2021-09-06] MEDS: KCL 40 MEQ/WATER 100 ML 100 ML 25 ML IVPB (18:48)
[2021-09-06 18:50] LABS: Barbiturate Screen Urine Negative (Negative); Benzodiazepines Screen Urine Positive (Negative)
--- NOTE | 2021-09-06 19:06 | ECG_ITS ---
Measurements Intervals [place] Rate: 131 P: 75 MT: 125 QRS: 79 QRSD: 94 T: 65 QT: 333 QTc: 493 Interpretive Statements SINUS TACHYCARDIA INCOMPLETE RIGHT BUNDLE BRANCH BLOCK [90+ ms QRS DURATION, TERMINAL R IN V1/V2, 40+ ms S IN I/aVL/V4/V5/V6] NONSPECIFIC ST & T-WAVE ABNORMALITY ABNORMAL RHYTHM ECG COMPARED TO ECG 09/06/2021 16:25:44 ST SEGMENT CHANGES HAVE IMPROVED Electronically Signed On 09-07-2021 12:03:59 CDT by Jaki Dobson M.D.
[2021-09-06 19:14] LABS: Cannabinoid Screen Urine Positive (Negative); Cocaine Screen Urine Negative (Negative); Methadone Screen Urine Negative (Negative); Opiate Screen Urine Negative (Negative); Phencyclidine Screen Urine Negative (Negative)
--- NOTE | 2021-09-06 19:16 | PC.NURSE ---
Spoke with Zandra from poison control requesting update on pt. Updates given including vitals, lab results and EKG.
--- NOTE | 2021-09-06 19:19 | PC.NURSE ---
Pt resting at this time. Awake intermittently requesting to go home.
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
[2021-09-06 19:49] LABS: Amphetamine Screen Urine Positive (Negative)
--- NOTE | 2021-09-06 19:55 | ECG_ITS ---
Measurements Intervals [place] Rate: 120 P: 69 DE: 124 QRS: 65 QRSD: 96 T: 55 QT: 362 QTc: 513 Interpretive Statements SINUS TACHYCARDIA INCOMPLETE RIGHT BUNDLE BRANCH BLOCK [90+ ms QRS DURATION, TERMINAL R IN V1/V2, 40+ ms S IN I/aVL/V4/V5/V6] NONSPECIFIC ST CHANGES COMPARED TO ECG 09/06/2021 19:15:06 NO SIGNIFICANT CHANGE Electronically Signed On 09-07-2021 12:06:00 CDT by Jaki Dobson M.D.
[2021-09-06] MEDS: SODIUM CHLORIDE 0.9% IV 1,000 ML 150 ML IV CONT (20:29)
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
--- NOTE | 2021-09-06 22:12 | ADMGEN ---
This patient, Ashley Lambert, was admitted to Intensive Care Unit-12 on 09/06/21 at 2115. Patient/family oriented to hospital policies and general routines including ID bracelet, bed and alarms, visiting hours, pain management, procedures, bathroom and other care routines, personal items, smoking policy, room service/diet, and visiting hours. Information on how to activate the Rapid Response Team has been discussed. Patient/Family are encouraged to report perceived risks to care and to ask questions if they do not understand what they are told or what they should do.
[2021-09-06] MEDS: MAGNESIUM SULF 2 GM/WATER 50ML 2 GM/50 ML BAG IVPB (22:44)
[2021-09-07] VITALS: BP 113/79; PULSE 104; PULSE 97; RESP 14; TEMP 36.1; O2SAT 100
[2021-09-07 02:00] VITALS: BP 116/85; PULSE 86; PULSE 87; RESP 13; O2SAT 99
[2021-09-07 04:00] VITALS: BP 132/86; PULSE 83; PULSE 91; RESP 14; TEMP 36.2; O2SAT 100
[2021-09-07] MEDS: SODIUM CHLORIDE 0.9% IV 1,000 ML 150 ML IV CONT (04:15)
[2021-09-07 04:33] LABS: Basophils Percent Auto 0.5 % (0.2-1.2); Eosinophils Absolute Auto 0.1 K/mm3 (0-0.3); Hematocrit 34.8 % (37.0-47.0); Hemoglobin 11.6 g/dL (12.0-15.0); Immature Granulocyte Absolute 0.02 K/mm3 (0.00-0.031); Immature Granulocyte Percent A 0.3 % (0-0.5); Lymphocytes Absolute Auto 2.29 K/mm3 (0.9-3.2); Lymphocytes Percent Auto 38.1 % (18.3-44.2); Mean Corpuscular HGB Conc 33.3 g/dl (32-36); Mean Corpuscular Hemoglobin 30.9 pg (26-34); Mean Corpuscular Volume 92.8 fl (80-100); Mean Platelet Volume 9.4 fl (7.4-10.4); Monocytes Absolute Auto 0.6 K/mm3 (0.1-0.6); Monocytes Percent Auto 9.7 % (2.6-8.5); Neutrophils Percent Auto 49.4 % (45.5-73.1); Platelet Count Result 268 k/mm3 (150-375); Red Blood Count 3.75 M/mm3 (4.2-5.4); Red Cell Distribution Width 13.1 % (11.5-14.5)
[2021-09-07 04:53] LABS: Alanine Aminotransferase 11 U/L (4-35); Albumin Level 3.5 g/dL (3.5-5.1); Alkaline Phosphatase 52 U/L (38-126); Anion Gap 6 mmol/L (8-16); Aspartate Amino Transferase 25 U/L (14-36); Bilirubin,Total 0.3 mg/dL (0.2-1.3); Blood Urea Nitrogen 10 mg/dL (7-17); Calcium 8.2 mg/dL (8.4-10.2); Carbon Dioxide 23 mmol/L (22-30); Chloride 111 mmol/L (98-107); Estimated CRCL calculation 112 ml/min; Estimated Glomerular Filt Rate > 60; Glucose 100 mg/dL (65-110); Magnesium 2.4 mg/dL (1.6-2.3); Potassium 4.2 mmol/L (3.4-5.0); Sodium 140 mmol/L (137-145)
[2021-09-07 06:00] VITALS: BP 139/108; PULSE 85; PULSE 88; RESP 19; O2SAT 100
--- NOTE | 2021-09-07 07:16 | ECG_ITS ---
Measurements Intervals [place] Rate: 84 P: 41 VT: 125 QRS: 83 QRSD: 99 T: 44 QT: 372 QTc: 442 Interpretive Statements SINUS RHYTHM COMPARED TO ECG 09/06/2021 19:58:24 SINUS RHYTHM NOW PRESENT Electronically Signed On 09-07-2021 18:32:46 CDT by Jaki Dobson M.D.
[2021-09-07 08:00] VITALS: BP 138/97; PULSE 81; RESP 17; TEMP 36.8; O2SAT 99
--- NOTE | 2021-09-07 08:35 | WPDCNINT ---
Assessment and Plan Assessment and plan (1) Overdose of antipsychotic: Qualifiers: Encounter type: initial encounter Injury intent: undetermined intent Qualified Code(s): T43.504A - Poisoning by unspecified antipsychotics and neuroleptics, undetermined, initial encounter Code(s): T43.501A - Poisoning by unspecified antipsychotics and neuroleptics, accidental (unintentional), initial encounter Status: Acute Assessment and Plan: Patient was admitted with suspected overdose of Seroquel. History has been limited as patient claims that she only took 3 pills all family reported that she may have taken 10 pill. Her drowsiness and prolonged QTC on the EKG was consistent with the fact that she may have taken more than which she is claiming to. This morning in her mental status has improved and she is now alert oriented x3 Her EKG done yesterday showed QTC of 513 which was prolonged I will repeat EKG this morning and if QTC is in normal range will consult Psychiatry for evaluating patient. Continue ICU telemetry monitoring for now Continue IV fluids were changed to LR (2) Rheumatoid arthritis: Code(s): M06.9 - Rheumatoid arthritis, unspecified Status: Acute Assessment and Plan: She is currently not on any treatment. Was on prednisone in the past but has not taken any for months. She claims that she is supposed to be on Enbrel but again has not taken it for 2-3 months (3) Tobacco abuse: Code(s): Z72.0 - Tobacco use Status: Acute Assessment and Plan: Patient was encouraged and counseled to quit smoking (4) Anxiety: Code(s): F41.9 - Anxiety disorder, unspecified Status: Inactive Assessment and Plan: Will resume p.r.n. lorazepam if patient post any symptoms since patient is now alert awake and oriented x3 (5) Hyperchloremia: Code(s): E87.8 - Other disorders of electrolyte and fluid balance, not elsewhere classified Status: Acute Assessment and Plan: Change IV fluids to LR in decrease rate Additional Plan DVT prophylaxis -Lovenox Nutrition -start regular diet Code Status - Full Code Community Outreach Coordinator Consult Note Consult date: 09/07/21 HPI: Ashley Lambert is a 25 year old female with past medical history of depression, rheumatoid arthritis, anxiety, PTSD presented yesterday to ER with concerns of Seroquel overdose. Patient has prescription for Seroquel and It was not clear yesterday in the ER how much Seroquel patient had taking. patient stated that she only took 3 pills because 2 pills were not effective but her family reported that she may have taken up to 10 pills. Patient was also drowsy and lethargic and hence suspected the patient has taken more than her usual dose. History was limited patient was drowsy and unable to provide any meaningful history. her EKG also showed prolonged QTC. She was placed under suicide precautions and admitted to ICU for closer monitoring . This morning patient is now alert and awake and denies any complaints. She is adamant that she took only 3 tablets because to were not working for her. She is adamant that she was not trying to hurt herself or commit suicide. She states that she has done that in the past but now she knows better and was not thinking about that. She admits that she is not compliant with her medication and is only taking 3 medication in the form of lorazepam Seroquel she was unable to tell me the name of the 3rd medication. She states that she feels fine at this time and does not have any complaints. She states that until yesterday also she was feeling fine with no complaints. Again she is adamant that she was not trying to hurt herself and has no plans or intentions of hurting herself or anyone else. Review of Systems Review of Systems: All systems reviewed & are unremarkable except as noted in HPI and below (HPI) [facility] Past Medical History Medical History (Updated 09/07/21 @ 08:45
[2021-09-07] MEDS: LACTATED RINGERS 1,000 ML 100 ML IV CONT (09:09)
[2021-09-07] MEDS: ENOXAPARIN 40 MG/0.4 ML SYRINGE SUB-Q (09:10)
--- NOTE | 2021-09-07 10:32 | PM.EVENT ---
Event Note Event Note Event Note: EKG reviewed and QTC is normal. Since patient is clinically asymptomatic and appears back to baseline will request psychiatry to evaluate patient.
[2021-09-07 11:04] LABS: SARS-CoV-2 RNA PCR Negative
[2021-09-07 12:00] VITALS: PULSE 83
--- NOTE | 2021-09-07 12:10 | PM.DS ---
DS: Admitting Diagnosis Discharge Date 09/07/2021 Admitting Diagnosis over does of Seroquel DS: Discharge Diagnosis Discharge Diagnosis (1) Overdose of antipsychotic: Qualifiers: Encounter type: initial encounter Injury intent: undetermined intent Qualified Code(s): T43.504A - Poisoning by unspecified antipsychotics and neuroleptics, undetermined, initial encounter Code(s): T43.501A - Poisoning by unspecified antipsychotics and neuroleptics, accidental (unintentional), initial encounter Status: Acute Assessment and Plan: Patient was admitted with suspected overdose of Seroquel. History has been limited as patient claims that she only took 3 pills all family reported that she may have taken 10 pill. Her drowsiness and prolonged QTC on the EKG was consistent with the fact that she may have taken more than which she is claiming to. This morning in her mental status has improved and she is now alert oriented x3 Her EKG done yesterday showed QTC of 513 which was prolonged I will repeat EKG this morning and if QTC is in normal range will consult Psychiatry for evaluating patient. Continue ICU telemetry monitoring for now Continue IV fluids were changed to LR (2) Rheumatoid arthritis: Code(s): M06.9 - Rheumatoid arthritis, unspecified Status: Acute Assessment and Plan: She is currently not on any treatment. Was on prednisone in the past but has not taken any for months. She claims that she is supposed to be on Enbrel but again has not taken it for 2-3 months (3) Tobacco abuse: Code(s): Z72.0 - Tobacco use Status: Acute Assessment and Plan: Patient was encouraged and counseled to quit smoking (4) Anxiety: Code(s): F41.9 - Anxiety disorder, unspecified Status: Inactive Assessment and Plan: Will resume p.r.n. lorazepam if patient post any symptoms since patient is now alert awake and oriented x3 (5) Hyperchloremia: Code(s): E87.8 - Other disorders of electrolyte and fluid balance, not elsewhere classified Status: Acute Assessment and Plan: Change IV fluids to LR in decrease rate DS: Summary Hospital Course Reason for hospitalization: Chief Complaint: Seroquel overdose Narrative: 25-year-old female with past medical history of rheumatoid arthritis, schizophrenia, depression, PTSD and anxiety who presented to the ER after having taken a Seroquel overdose. The exact amount of overdoses unknown. The patient had Seroquel filled 08/10/2021 after her recent hospitalization for overdose of naproxen. It is on certain how many tabs of Seroquel the patient had left. The patient states that she took 3 tablets her family stated she took 10 tablets. The patient is verbally be abusive in belligerent to staff at this time. The patient was sleeping until I tried to exam err which time she started swinging at me in cursing at me. She will not provide me with any history. Urine drug screen reported the ER with positive for amphetamines, benzodiazepines and cannabinoids. The patient denied attempt to harm herself in the ER but would only wake for minimal periods of time. In the ER EKG demonstrated QTC of 411. For some reason when EKG was transferred to the electronic system a changes see QTC 494 and 513. Hospital Course: Patient was seen and evaluated by the crisis team and has come to agreement to follow-up with psychiatry, I also spoke with the patient she has agreed to see will not take her medication more than prescribed, patient has made safety contract with the crisis team, patient is clinically stable was seen by intensive and medically cleared will discharge the patient today. Status at Discharge Functional status at discharge: independent ambulation Time Spent with Patient Time attestation: Total time spent providing and/or coordinating discharge services: Patient was seen and examined at the time of the discharge Condition at discharge is stable
== END 2021-09-07 14:59 | disposition home or self-care (01) ==
LOC: ANHED 21:00 → ANHICU 09-07 12:10
PROVIDERS: Internal Medicine; Admitting Provider Internal Medicine; Emergency Provider Emergency Medicine; PCP Physician Assistant; Visit Provider Family Medicine
DX: T43.591A Poisoning by other antipsychotics and neuroleptics, accidental (unintentional), initial encounter (principal); E87.6 Hypokalemia; R53.83 Other fatigue; R33.8 Other retention of urine; E87.8 Other disorders of electrolyte and fluid balance, not elsewhere classified; F43.10 Post-traumatic stress disorder, unspecified; F20.9 Schizophrenia, unspecified; M06.9 Rheumatoid arthritis, unspecified; L40.50 Arthropathic psoriasis, unspecified; F41.8 Other specified anxiety disorders; F12.90 Cannabis use, unspecified, uncomplicated; F15.90 Other stimulant use, unspecified, uncomplicated; Z20.822 Contact with and (suspected) exposure to COVID-19
CPT/HCPCS: 36415; 51701; 80053; 80307; 81001; 81025; 83735; 84443; 85025; 87077; 87086; 87088; 93005; 96361; 96365; 96366; 96367; 96372; 99285; C9803; G0378; J1650; J3475; J3480; J7030; J7120; U0003; U0005